=== PATIENT | male | born 1945 | race Caucasian/White ===

== ENCOUNTER 2020-11-02 10:55 | Outpatient (REF) | payer MEDICARE, OTHER, SELFPAY ==
--- NOTE | ~2020-11-02 | XR_ITS ---
EXAMINATION: XR PELVIS XR FEMUR, LEFT CLINICAL INFORMATION: Left thigh pain. COMPARISON: None TECHNIQUE: AP view of the pelvis. AP and lateral views of the left femur were obtained. FINDINGS: There is bony demineralization. There is mild narrowing of the bilateral acetabular joint spaces. The bilateral acetabular roofs show significant subchondral sclerosis and small peripheral osteophytes. There is irregularity of the superior margin of the right femoral head, and the left femoral head appears smooth. No acute fracture or dislocation is seen. 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 Midline abdominopelvic surgical clips are seen. No left femoral fracture is seen. There are left femoral atherosclerotic calcifications. There are coarse calcifications in the lateral soft tissues of the left upper thigh. XR/XR pelvis 1-2V IMPRESSION: 1. 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 2. 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 3. There is bony demineralization. 4. No acute fracture or dislocation is seen.
--- NOTE | ~2020-11-02 | XR_ITS ---
EXAMINATION: XR PELVIS XR FEMUR, LEFT CLINICAL INFORMATION: Left thigh pain. COMPARISON: None TECHNIQUE: AP view of the pelvis. AP and lateral views of the left femur were obtained. FINDINGS: There is bony demineralization. There is mild narrowing of the bilateral acetabular joint spaces. The bilateral acetabular roofs show significant subchondral sclerosis and small peripheral osteophytes. There is irregularity of the superior margin of the right femoral head, and the left femoral head appears smooth. No acute fracture or dislocation is seen. 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 Midline abdominopelvic surgical clips are seen. No left femoral fracture is seen. There are left femoral atherosclerotic calcifications. There are coarse calcifications in the lateral soft tissues of the left upper thigh. XR/XR femur LT 2V IMPRESSION: 1. 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 2. 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 3. There is bony demineralization. 4. No acute fracture or dislocation is seen.
== END 2020-11-02 10:56 | disposition home or self-care (01) ==
LOC: HO.HOSX 10:55
PROVIDERS: Visit Provider Orthopaedic Surgery
DX: M79.652 Pain in left thigh (principal); M48.061 Spinal stenosis, lumbar region without neurogenic claudication
CPT/HCPCS: 72170; 73552; 99202